=== PATIENT | male | born 1980 ===

== ENCOUNTER 2024-03-06 14:32 | Emergency (ER) | payer OTHER ==
[~2024-03-06] VITALS: Ht 180.3 cm; Wt 94.0 kg
[2024-03-06] MEDS ORDERED: GABAPENTIN100 MG PO (14:48)
[2024-03-06] MEDS ORDERED: MELOXICAM15 MG PO (14:48)
[2024-03-06] MEDS ORDERED: KETOROLAC TROMETHAMINE 30 MG/ML VIAL IM ONE (17:15)
[2024-03-06 17:52] VITALS: BP 132/82
== END 2024-03-06 17:46 | disposition other institution, planned readmission (95) ==
LOC: ED 14:32
DX: M16.0 Bilateral primary osteoarthritis of hip (principal); Z88.5 Allergy status to narcotic agent; Z79.899 Other long term (current) drug therapy
CPT/HCPCS: 73502; 96372; 99283-25; J1885